=== PATIENT | female | born 1960 | race Hispanic/Latino ===

== ENCOUNTER → 2022-01-29 | Outpatient (CLI) | payer OTHER ==
[~2022-01-29] MED LIST: IOHEXOL 350 MG/ML 100ML INFUS..BTL IV ONE
[2022-01-29 10:36] LABS: HEMATOCRIT 46.1 % (36-48); MEAN CORPUSCULAR HEMOGLOBIN 30.4 pg (27.0-33.0); MEAN CORPUSCULAR HGB CONC 33.4 g/dL (32.0-36.0); MEAN CORPUSCULAR VOLUME 90.9 fL (79-99); PLATELET COUNT (AUTO) 121 K/uL (130-400); RED BLOOD CELL COUNT(AUTO) 5.07 MIL/uL (4.00-5.50); RED CELL DISTRIBUTION WIDTH 13.1 % (11.0-15.5); WHITE BLOOD COUNT (AUTO) 6.6 K/uL (4.8-10.8)
[2022-01-29 10:52] LABS: ALBUMIN 3.1 g/dL (3.5-5.0); CREATININE 0.9 mg/dL (0.5-1.5); POTASSIUM 4.3 mmol/L (3.5-5.1); TOTAL PROTEIN, SERUM 7.9 g/dL (6.0-8.3)
[2022-01-29 12:06] LABS: BAND NEUTROPHILS % (MANUAL) 1 % (0-2); EOSINOPHILS % (MANUAL) 2 % (1-6); LYMPHOCYTES % (MANUAL) 24 % (22-44); MONOCYTES % (MANUAL) 8 % (2-9); SEGMENTED NEUTROPHILS % 65 % (40-70)
[2022-01-29 12:07] LABS: MAN.DIFF COMMENT-IMPRESSION MANUAL DIFFERENTIAL
[2022-01-29 12:08] LABS: PLATELET MORPHOLOGY COMMENT SLIGHTLY DECREASED
== END | disposition home or self-care (01) ==
LOC: RAH 09:01
PROVIDERS: ATTEND Internal Medicine Gastroenterology
DX: C18.6 Malignant neoplasm of descending colon (principal)
CPT/HCPCS: 71270; 80053; 85025; 82378; 36415; 74178; Q9967